=== PATIENT | female | born 1955 | race Caucasian/White ===

== ENCOUNTER 2018-12-29 12:47 | Outpatient (CLI) | payer MEDICAID | END 2018-12-29 23:59 | disposition home or self-care (01) | LOC: CARD DIAG 12:47 | PROVIDERS: ATTEND Internal Medicine Critical Care Medicine | DX: I05.8 Other rheumatic mitral valve diseases (principal); J44.9 Chronic obstructive pulmonary disease, unspecified; Z87.891 Personal history of nicotine dependence | CPT/HCPCS: 93306 ==

== ENCOUNTER 2020-12-09 11:06 | Emergency (ER) | payer MEDICAID, SELFPAY ==
[~2020-12-09] VITALS: Ht 162.6 cm; Wt 54.1 kg
[2020-12-09] MEDS ORDERED: lisinopril 10 MG tablet PO ONE (12:00)
[2020-12-09 14:10] VITALS: BP 168/84
== END 2020-12-09 14:15 | disposition home or self-care (01) ==
LOC: ER 11:06
DX: I10 Essential (primary) hypertension (principal); R42 Dizziness and giddiness
CPT/HCPCS: 93005; 99283

== ENCOUNTER 2024-03-22 19:54 | Emergency (ER) | payer MEDICARE, MEDICAID ==
[~2024-03-22] VITALS: Ht 162.6 cm; Wt 44.1 kg
[2024-03-22 20:21] LABS: BASOPHILS % (AUTO) 0.2 % (0-1); EOSINOPHILS % (AUTO) 0.1 % (0-6); HEMATOCRIT 36.2 % (35.0-45.0); HEMOGLOBIN 11.9 g/dl (12.0-16.0); LYMPHOCYTES # (AUTO) 0.2 X10'3 (1.1-4.8); LYMPHOCYTES % (AUTO) 2.7 % (21-51); MEAN CORPUSCULAR HGB CONC 32.9 g/dL (33.0-36.5); MEAN CORPUSCULAR VOLUME 94.1 FL (78-98); MEAN PLATELET VOLUME 7.5 FL (7.4-10.4); MONOCYTES # (AUTO) 0.1 X10'3 (0-0.9); MONOCYTES % (AUTO) 1.6 % (2-12); NEUTROPHILS % (AUTO) 95.4 % (42-75); PLATELET COUNT 239 X10'3 (140-440); RED BLOOD COUNT 3.84 X10'6 (4.20-5.60); RED CELL DISTRIBUTION WIDTH 13.7 % (11.5-14.5); WHITE BLOOD COUNT 6.3 X10'3 (4.5-11.0)
[2024-03-22 20:31] LABS: ALANINE AMINOTRANSFERASE 23 U/L (12-78); ALBUMIN 3.4 G/DL (3.4-5.0); ALBUMIN/GLOBULIN RATIO 0.7 (1.1-1.5); ALKALINE PHOSPHATASE 72 IU/L (46-116); ANION GAP 0 (8-16); ASPARTATE AMINO TRANSFERASE 13 U/L (10-37); BILIRUBIN,TOTAL 0.4 MG/DL (0.1-1.0); BLOOD UREA NITROGEN 12 MG/DL (7-18); BUN/CREATININE RATIO 17.4 (10.0-20.0); CALCIUM 10.2 MG/DL (8.5-10.1); CHLORIDE 94 MMOL/L (99-107); CREATININE 0.69 MG/DL (0.40-0.90); GLUCOSE 139 MG/DL (70-104); POTASSIUM 4.2 MMOL/L (3.5-5.1); SODIUM 131 MMOL/L (135-145); TOTAL CARBON DIOXIDE 36.7 MMOL/L (24-32); TOTAL PROTEIN 8.2 G/DL (6.4-8.2); eCRCL 56 ML/MIN; eGFR 85 ML/MIN
[2024-03-22 20:38] LABS: PRO BRAIN NATRIURETIC PEPTIDE 75 PG/ML (0-125)
[2024-03-22] MEDS: ipratropium/albuterol 3ml nebule NEB ONE (21:16)
[2024-03-22 21:18] VITALS: PULSE 100; RESP 14; O2SAT 96
[2024-03-22 21:22] VITALS: PULSE 101; RESP 16; O2SAT 99
[2024-03-22] MEDS: hydrALAZINE 20mg/ml inj. IV ONE (21:24)
[2024-03-22 21:33] LABS: D-DIMER 1.68 MG/L FEU (0-0.50)
[2024-03-22] MEDS: LORazepam 2 mg/ml vial IV ONE (22:25)
[2024-03-22] MEDS ORDERED: iohexol 350MG/ML 100ml bottle IV ONE (22:30)
[2024-03-23] MEDS ORDERED: LORA-269 PO (00:59)
[2024-03-23] MEDS ORDERED: AMLO10TA5 PO (01:02)
[2024-03-23] MEDS: amLODIPine 5mg tablet PO ONE (01:06)
[2024-03-23 02:05] VITALS: BP 170/83; PULSE 106; RESP 22; TEMP 98.1; O2SAT 97
== END 2024-03-23 01:43 | disposition home or self-care (01) ==
LOC: ER 19:55
DX: J44.1 Chronic obstructive pulmonary disease with (acute) exacerbation (principal); F41.9 Anxiety disorder, unspecified; R00.0 Tachycardia, unspecified; I10 Essential (primary) hypertension
CPT/HCPCS: 36415; 71045; 71275; 80053; 83880; 84484; 85025; 85379; 93005; 94640; 96374; 96375; 99285; J0360; J2060; Q9967; Z7610; 94760